=== PATIENT | female | born 2000 | race Hispanic/Latino ===

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

== ENCOUNTER 2022-09-18 12:33 | Emergency (ER) | payer OTHER ==
[~2022-09-18] VITALS: Ht 165.1 cm; Wt 61.7 kg
[2022-09-18] MEDS ORDERED: LACTATED RINGERS 1000ML 1,000 ML IV ONE (13:00)
[2022-09-18] MEDS ORDERED: ONDANSETRON 4MG INJ IVP ONE (13:00)
[2022-09-18 13:08] VITALS: BP 116/70
[2022-09-18 13:13] LABS: BASOPHILS % (AUTO) 0.5 % (0.0-5.0); EOSINOPHILS % (AUTO) 1.8 % (0.0-8.0); HEMATOCRIT 31.8 % (36-48); LYMPHOCYTES % (AUTO) 30.7 % (21.0-51.0); MEAN CORPUSCULAR HEMOGLOBIN 20.5 pg (27.0-33.0); MEAN CORPUSCULAR HGB CONC 28.3 g/dL (32.0-36.0); MEAN CORPUSCULAR VOLUME 72.4 fL (80-100); MONOCYTES % (AUTO) 8.4 % (3.0-13.0); NEUTROPHILS % (AUTO) 58.1 % (40.0-77.0); PLATELET COUNT (AUTO) 260 K/uL (130-400); RED BLOOD CELL COUNT(AUTO) 4.39 MIL/uL (4.00-5.50); RED CELL DISTRIBUTION WIDTH 17.5 % (11.0-15.5); WHITE BLOOD COUNT (AUTO) 4.4 K/uL (4.8-10.8)
[2022-09-18 13:15] LABS: APPEARANCE,URINE CLEAR (CLEAR); BILIRUBIN,URINE NEGATIVE (NEGATIVE); COLOR,URINE LIGHT-YELLOW (YELLOW); GLUCOSE, URINE (UA) NEGATIVE (NEGATIVE); KETONES,URINE NEGATIVE (NEGATIVE); LEUKOCYTE ESTERASE ,URINE 75 Leu/uL (NEGATIVE); NITRATE,URINE NEGATIVE (NEGATIVE); OCCULT BLOOD,URINE NEGATIVE (NEGATIVE); PH,URINE 5.5 (5.0-8.0); PROTEIN,URINE NEGATIVE (NEGATIVE); UROBILINOGEN,URINE 0.2 mg/dL (0.2-1.0)
[2022-09-18 13:20] LABS: HCG,QUALITATIVE URINE NEGATIVE (NEGATIVE)
[2022-09-18 13:22] LABS: CREATININE 0.7 mg/dL (0.5-1.5); POTASSIUM 3.4 mmol/L (3.5-5.1)
[2022-09-18 13:26] LABS: ALBUMIN 4.5 g/dL (3.5-5.0); TOTAL PROTEIN, SERUM 9.3 g/dL (6.0-8.3)
[2022-09-18 13:29] LABS: MUCUS,URINE MOD LPF (None Seen); OTHER CASTS, URINE 1 /LPF (None Seen); RBC,URINE 0-1 /HPF (0-1); SQUAMOUS EPITHELIAL CELL,UR FEW /HPF (0-2)
[2022-09-18] MEDS ORDERED: POTASSIUM CHLORIDE 10% ELIXIR 20 MEQ/15 ML UDCUP PO ONE (14:00)
[2022-09-18] MEDS ORDERED: LOPE2TAB26 PO (14:03)
[2022-09-18] MEDS ORDERED: CIPR750T17 PO (14:03)
[2022-09-18] MEDS ORDERED: ONDA4TAB10 PO (14:03)
== END 2022-09-18 14:23 | disposition home or self-care (01) ==
LOC: EDH 12:33
DX: K52.9 Noninfective gastroenteritis and colitis, unspecified (principal); E87.6 Hypokalemia
CPT/HCPCS: 99283; 96374; 96361; 80053; 83690; 85025; 87088; 81001; 81025; 36415; J7120

== ENCOUNTER 2024-12-12 16:14 | Emergency (ER) | payer SELFPAY ==
[~2024-12-12] VITALS: Ht 152.4 cm; Wt 58.1 kg
[~2024-12-12 16:14] MED LIST: CIPR750T90 PO; LOPE2TAB26 PO; ONDA-243 PO
[2024-12-12 16:21] VITALS: BP 126/74; PULSE 82; RESP 18; TEMP 98.4; O2SAT 100
--- NOTE | 2024-12-12 16:41 | ERN ---
ED Note History of Present Illness Stated Complaint: BLOOD IN STOOL Chief Complaint: Bloody Stool Time Seen by MD: 16:27 Time Seen by Midlevel: 16:28 Dictation: A 24-year-old female presents to the emergency department for evaluation due to report of having had several episodes of rectal bleeding the past 2 days. She states that she does have an established history of hemorrhoids and is here for evaluation due to concern for those episodes of rectal bleeding. The patient states that it is primarily when she wipes herself an occasional his the seen under the toilet but with no blood clots. As per the patient, she does have a history of constipation for which she occasionally strains. There is no complaint of any nausea, vomiting or abdominal pain associated with this. Patient denies having any hemoptysis, hematemesis, hematuria, petechial rash or hemarthrosis. She also states that there is no strong family history of any gastrointestinal cancer. Upon initial evaluation, the patient presents in no acute distress. Allergies: Coded Allergies: No Known Allergies (Unverified Allergy, Unknown, 09/18/22) Emergency Care [employer]: None Home Meds Active Scripts Loperamide HCl (Loperamide) 2 Mg Tablet, 2 MG PO 5X/DAY for with every diarrhea, #12 TAB 0 Refills Prov:SKYE LI MD 09/18/22 Ondansetron (Ondansetron Odt) 4 Mg Tab.rapdis, 4 MG PO Q6H for nausea, #10 TAB 0 Refills Prov:SKYE LI MD 09/18/22 Ciprofloxacin HCl (Cipro) 750 Mg Tab, 750 MG PO BID for 3 Days, #6 TAB 0 Refills Prov:SKYE LI MD 09/18/22 Past Medical History Past Medical History: No Pertinent History Surgical History: None PSYCH History: no pertinent psych hx Social History: Negative RN Note Reviewed/Agreed w/PFSH: Yes Review of System Dictation Abdomen/GI: Rectal bleeding Initial Vital Sign VS Vital Signs Date Time Temp Pulse Resp B/P (MAP) Pulse Ox O2 Delivery O2 Flow Rate FiO2 12/12/24 16:16 98.4 82 16 126/76 100 Room Air 0 12/12/24 16:21 21 Physical Exam Dictation General: awake, alert, NAD Head/Face: Normocephalic, atraumatic Eyes: PERRL, EOMI ENT: Oral mucosa moist Neck: Trachea midline, supple Cardiovascular: RRR, no edema Respiratory: Symmetrical, non-labored Abdomen: Soft, non-tender, non-distended, no guarding. Skin: Warm, dry, good turgor, no rash MS/Extremity: Pulses equal, no cyanosis, neurovascular intact, FROM Neuro: COAx4, GCS 15, steady gait, Psych: Normal behavior, mood, and affect normal ED Course ED Course Vital Signs Date Time Temp Pulse Resp B/P (MAP) Pulse Ox O2 Delivery O2 Flow Rate FiO2 12/12/24 16:21 98.4 82 18 126/74 100 Room Air* 0 21 12/12/24 16:16 98.4 82 16 126/76 100 Room Air 0 Medical Decision Making MDM MDM: Differential diagnosis: Internal hemorrhoids, external hemorrhoids, rectal bleeding. Rationale: Tests considered and ordered secondary to shared decision making include: Previous outside records reviewed: Old ER visits. Risk of complication and/or morbidity or mortality of patient management: None Medications-Per medication reconciliation Need for hospitalization: Patient does not meet criteria for hospitalization. Need for emergency major/minor surgery: No There are no social concerns with this patient. Prescription drug management Prescriptions will include symptomatic care Patient's prior external medical records from other ER visits were reviewed by me as indicated. Prior testing and results from previous visits were reviewed. Prior tests were taken into account with medical decision making and resource utilization, independent historian/historians were used to obtain complete medical history. I independently interpreted the test that were performed, results were reviewed by me and considered findings on radiology if ordered. Medical management and examination interpretation discussions were had by me with other qualified healthcare professionals as indicated for the patient's care. DX & DISP Disposition: Discharge Departure Impression: Primary Impression: Rectal bleeding Additional Impression: History of hemorrhoids Condition: Stable Referrals: SELF,REFERRAL (PCP) Time of Disposition: 16:40 NATHEN HERNANDEZ Dec 12, 2024 16:41
== END 2024-12-12 16:43 | disposition home or self-care (01) ==
LOC: EDH 16:14
DX: K62.5 Hemorrhage of anus and rectum (principal); Z79.899 Other long term (current) drug therapy
CPT/HCPCS: 99281; 99282